=== PATIENT | female | born 1990 | race African-American/Black ===

== ENCOUNTER 2021-11-15 17:06 | Emergency (ER) | payer OTHER ==
[~2021-11-15] VITALS: Ht 154.9 cm; Wt 54.0 kg
[~2021-11-15 17:06] MED LIST: ALBU2.5V13
[2021-11-15 17:17] VITALS: BP 115/71
== END 2021-11-16 01:45 | disposition left against medical advice (07) ==
LOC: ER 17:06
DX: Z53.21 Procedure and treatment not carried out due to patient leaving prior to being seen by health care provider (principal)